=== PATIENT | male | born 1955 | race Caucasian/White ===

== ENCOUNTER → 2023-07-18 07:10 | Outpatient (REF) | payer MEDICARE, OTHER, SELFPAY | LOC: HWRAD 07:10 | PROVIDERS: ATTENDING PHYSICIAN Internal Medicine | DX: Z87.891 Personal history of nicotine dependence (principal) | CPT/HCPCS: 71271 ==

== ENCOUNTER → 2024-01-17 14:56 | Outpatient (REF) | payer MEDICARE, OTHER, SELFPAY | LOC: HWRAD 14:56 | PROVIDERS: ATTENDING PHYSICIAN Internal Medicine Critical Care Medicine; FAMILY PHYSICIAN Internal Medicine | DX: R91.1 Solitary pulmonary nodule (principal) | CPT/HCPCS: 71250 ==

== ENCOUNTER → 2024-07-13 09:37 | Outpatient (REF) | payer MEDICARE, OTHER, SELFPAY | LOC: HWRAD 09:37 | PROVIDERS: ATTENDING PHYSICIAN Internal Medicine Critical Care Medicine; FAMILY PHYSICIAN Internal Medicine | DX: R91.1 Solitary pulmonary nodule (principal) | CPT/HCPCS: 71250 ==

== ENCOUNTER → 2024-10-23 10:32 | Outpatient (REF) | payer MEDICARE, OTHER, SELFPAY | LOC: HWRAD 10:32 | PROVIDERS: ATTENDING PHYSICIAN Internal Medicine Critical Care Medicine; FAMILY PHYSICIAN Internal Medicine | DX: R91.1 Solitary pulmonary nodule (principal) | CPT/HCPCS: 71250 ==

== ENCOUNTER → 2024-11-12 16:19 | Outpatient (REF) | payer MEDICARE, OTHER, SELFPAY | LOC: MRI 3T 16:19 | PROVIDERS: ATTENDING PHYSICIAN Specialist; FAMILY PHYSICIAN Internal Medicine | DX: R97.20 Elevated prostate specific antigen [PSA] (principal) | CPT/HCPCS: 72197; A9575 ==

== ENCOUNTER → 2024-11-27 13:12 | Outpatient (REF) | payer MEDICARE, OTHER, SELFPAY | LOC: CLAB 13:12 | PROVIDERS: ATTENDING PHYSICIAN Specialist | DX: R97.20 Elevated prostate specific antigen [PSA] (principal) | CPT/HCPCS: 88305 ==

== ENCOUNTER 2024-12-04 11:47 | Inpatient (IN) | payer MEDICARE, OTHER, SELFPAY ==
[2024-12-04] VITALS (40 sets, daily range): BP systolic 83–134; BP diastolic 53–100; BMI 22.0
[2024-12-04 07:58] LABS: Hematocrit 32.6 % (39.0-52.0); Hemoglobin 10.8 g/dL (13.0-18.0); Mean Corp Hgb Conc. 33.1 g/dL (33.0-37.0); Mean Corpuscular Volume 97.6 fL (80.0-94.0); Nucleated Red Blood Cells % 0 % (-); Platelet Count 341 10^3/uL (130-400); Red Cell Dist. Width 22.1 % (11.5-14.5)
[2024-12-04 08:16] LABS: ALT (SGPT) 27 U/L (0-50); AST (SGOT) 25 U/L (17-59); Albumin 3.9 g/dl (3.5-5.0); Alkaline Phosphatase 50 U/L (38-126); Blood Urea Nitrogen 16 mg/dl (9-20); Calcium 8.9 mg/dl (8.4-10.2); Carbon Dioxide 26 mmol/L (22-30); Chloride 109 mmol/L (98-107); Glucose 127 mg/dl (70-99); Potassium 4.2 mmol/L (3.5-5.1); Sodium 139 mmol/L (135-145); Total Protein 6.1 g/dl (6.3-8.2); eGFR > 60.00
[2024-12-04 08:32] LABS: Anisocytosis 1+; Hypochromasia 1+; Normal RBC Morphology No; Polychromasia 1+
[2024-12-04 08:32] LABS: Glucose - Point of Care 159 mg/dl (70-99)
[2024-12-04 08:33] LABS: Ovalocytes 1+
[2024-12-04] MEDS: NSS 2000 IV (08:35)
[2024-12-04] MEDS: PROTONIX IV 80 MG IV (08:35)
[2024-12-04] MEDS: ZOFRAN 4 MG IV ×2 (08:35→09:03)
--- NOTE | 2024-12-04 08:40 | EDRN ---
Addendum entered by Juhi Duffy RN 12/04/24 10:50:
1000 pt given IV Phenergan for ongoing nausea.
IV D5 LR started at 125/hr
1035 hospitalist in rm to eval pt
1045 GI in rm to eval pt
1st unit of bld started as ordered.
Addendum entered by Juhi Duffy RN 12/04/24 09:41:
0845 pt given tranexamic IV as ordered.
pt continues to c/o nausea 2nd dose zofran 4mg given
[address] scan of abd.
no further rectal blding noted
Original Note:
0820 pt got out of bed to use the bathroom. pts yelled out she needs help. pt passed out and was taken to the floor by two nurses. noted large amount of rectal blding with clots.
pt was lifted back to the stretcher. Dr Hill at bedside.
two more IV inserted 18 g right AC and 20g left wrist.
IV fluids wide open started.
type and cross sent.
bld consent signed.
pt c/o n/v at this time.
pt given IV zofran
pt given IV protonix
[2024-12-04] MEDS: TRANEXAMIC ACID 100 IV (08:48)
--- NOTE | 2024-12-04 08:52 | ED.GENMED ---
History of Present Illness
General
Chief Complaint: Rectal Bleeding
Time Seen by Provider: 12/04/24 08:01
Nursing documentation reviewed up to this point in time: agreed with
History of Present Illness
History of Present Illness:
69-year-old male presents to the ER for evaluation of rectal bleeding which started this morning. Patient had a transrectal prostate biopsy last week. He reports minimal bleeding after the procedure which had resolved. He has been feeling well
and denies any recent straining or constipation. He reports that he is feeling very weak and nauseated. On arrival to the ER he had a large bloody bowel movement. He felt nauseated and went to go vomit in the sink, passed another large amount of
blood and clots, at least 250 mL and felt near syncopal. He denies chest pain or shortness of breath. No syncope at home. He takes baby aspirin daily, no other blood thinners. He is not on any other prescription medications
Past History
Past History
ED Past Medical History: None
ED Past Surgical History: None
Review of Systems
Review of Systems
Allergies reviewed?: Yes
Phy Exam
Physical Exam
Physical Exam:
Patient preferring to keep eyes closed during exam, appears pale, head is normocephalic atraumatic, mucous membranes tacky, heart regular rate and rhythm no murmurs or ectopy, lungs are clear to auscultation without wheezes rales or rhonchi, abdomen
is soft and nontender without guarding rebound or rigidity, thready DP pulses present bilateral feet, 2+ radial pulses present bilateral upper extremities with delayed cap refill, GCS is 15, no rash
Course
Orders/Labs/Results
Orders:
Orders
12/04/24 07:43
Complete Blood Count/With Diff Urgent
Comprehensive Metabolic Panel Urgent
12/04/24 08:21
Ondansetron Injectable [Zofran] 4 mg .ROUTE .STK-MED ONE
12/04/24 08:24
Cardiac Monitoring- Treatment ONCE
Pantoprazole [Protonix IV] 80 mg IV NOW STA
Pulse Ox/cont/shift [RESP] Stat
Quantity: 1
12/04/24 08:25
Electrocardiogram (*1) Stat
Reason for Study: Other
Other Reason for Exam: GI Bleed
CT Abd/pelvis Angio W/wo Iv Urgent
Comment:
Reason For Exam: gi bleeding
EKG- Treatment ONCE
IV Insert/Care/Rem.- Treatment PRN
12/04/24 08:26
0.9% Sodium Chloride 1000 ml [Nss] 2,000 ml IV BOLUS
Ondansetron Injectable [Zofran] 4 mg IV NOW STA
12/04/24 08:34
Type+Screen Urgent
12/04/24 08:40
Tranexamic Acid 1000 mg/100 ml [Tranexamic Acid] 1,000 mg in 100 ml IV ONCE
12/04/24 08:45
Ondansetron Injectable [Zofran] 4 mg IV NOW STA
12/04/24 08:50
* Blood Bank Products Urgent
Blood Bank Products: *Packed RBC Leuko(PRBC's)
Quantity: 1
Transfuse Today: Yes
Reason: Bleeding
12/04/24 09:00
Complete Blood Count/No Diff Urgent
PTT Urgent
Prothrombin Time Urgent
12/04/24 09:12
Dextrose 5%/Lactringers 1000ML [D5lr] 1,000 ml Promethazine [Phenergan] 25 mg IV 125 mls/hr
Abnormal Lab Results
12/04/24 12/04/24 12/04/24
07:43 08:21 08:34
RBC 3.34 L 10^6/uL
(4.70-6.10)
Hgb 10.8 L g/dL
(13.0-18.0)
Hct 32.6 L %
(39.0-52.0)
MCV 97.6 H fL
(80.0-94.0)
MCH 32.3 H pg
(27.0-31.0)
RDW 22.1 H %
(11.5-14.5)
Abs Immat Gran (auto) 0.1 H 10^3/uL
(0-0.05)
Absolute Monos (auto) 0.9 H 10^3/uL
(0.1-0.6)
Immature Gran % 1.2 H %
(0-0.5)
Monocytes % 10.2 H %
(1.7-9.3)
PT
Chloride 109 H mmol/L
(98-107)
Creatinine 0.6 L mg/dL
(0.7-1.3)
Glucose 127 H mg/dl
(70-99)
Total Protein 6.1 L g/dl
(6.3-8.2)
POC Glucose 159 H mg/dl
(70-99)
Crossmatch IS Only See Detail
12/04/24
09:00
RBC 2.45 L 10^6/uL
(4.70-6.10)
Hgb 8.1 L D g/dL
(13.0-18.0)
Hct 24.0 L %
(39.0-52.0)
MCV 98.0 H fL
(80.0-94.0)
MCH 33.1 H pg
(27.0-31.0)
RDW 22.3 H %
(11.5-14.5)
Abs Immat Gran (auto)
Absolute Monos (auto)
Immature Gran %
Monocytes %
PT 17.3 H Sec
(11.4-14.6)
Chloride
Creatinine
Glucose
Total Protein
POC Glucose
Crossmatch IS Only
12/04/24 09:00
12/04/24 07:43
Hemoglobin stable compared to prior value of 11 from 03/18/2019
Vital Signs
Initial and Last Documented VS:
Initial Vital Signs
Temp Pulse Resp BP Pulse Ox
97.8 F 104 18 134/100 98
12/04/24 07:09 12/04/24 07:09 12/04/24 07:09 12/04/24 07:09 12/04/24 07:09
Last Documented Vital Signs
Temp Pulse Resp BP Pulse Ox
97.8 F 87 13 115/69 98
12/04/24 07:09 12/04/24 07:41 12/04/24 07:41 12/04/24 07:41 12/04/24 08:56
MDM/Problems Addressed
Differential Diagnosis Includes:
Differential diagnosis considered but not limited to bleeding from procedural site, AVM, diverticular bleed along with other etiologies considered
*Radiology
Radiology exam reviewed: preliminary read by ED provider (I independently viewed and interpreted CT angio showing no evidence for acute extravasation, gastroenterology updated. Radiology reading was available shortly after my initial view) and
radiology read reviewed (IMPRESSION: 1. No contrast extravasation appreciated to suggest active gastrointestinal hemorrhage at the time of imaging. 2. Moderate colonic diverticulosis, most pronounced within the sigmoid colon, without evidence of
diverticulitis. 3. Mild prostatic enlargement. 4. Emphysema at the visualized)
*Pulse Oximetry
SaO2: 98
Oxygen Mode of Delivery: Room air
Patient hypoxic: no
*EKG
Interpreted by ED Provider?: Yes (I dependently viewed and interpreted twelve-lead EKG showing normal sinus rhythm, rate 62, normal axis, normal intervals, no ST elevation improved rate compared to prior from 10/05/2016)
*[employer] Claim Examiner Interpretation
Rate: normal (I independently reviewed and interpreted rhythm strip showing normal sinus rhythm, no ectopy)
*Critical Care Note
Total Time (30-74mins, 75-104mins- exclusive of procedures): see below
comment:
Critical care statement: A total of 60 minutes of critical care time was provided for this patient. This includes management of unstable vital signs, evaluation of the patient at bedside, reviewing the patient's pertinent medical records, discussion
with consultants, review of old EKGs and review of pertinent medical records. This time with separate from time utilized to perform the aforementioned documented procedures
Update Note
Update Note:
Patient's blood sugar checked after near syncopal episode, within normal limits. 2 L IV fluid bolus ordered along with Zofran, Protonix, type and screen and repeated CBC. I discussed with patient and present at bedside need for emergent
evaluation to assess area of bleeding. Given ongoing passage of blood and clots per rectum, will give dose of TXA. Awaiting CT angio for further delineation of care plan. I notified on-call gastroenterology of patient's situation. Blood consent
form signed. 1 unit packed red cells ordered. Awaiting remaining results.
0925-rectal exam had been deferred at time of initial presentation given hypotension and severity of appearance. Once blood pressure improved, patient is no longer having gross rectal bleeding. I do not see any evidence of anal fissure or bleeding
external hemorrhoid, though there is scant bright red blood present on the clots below the patient. Awaiting remaining results and GI consultation
0957: CT does not show any acute bleeding. I reviewed full patient presentation and updated information with gastroenterology and hospitalist. Hospitalist accepts patient for admission for further care
ED Attending Note
-
Portions of this chart may have been created with voice recognition software.� Occasional wrong word or��sound alike� substitutions may have occurred due to the inherent limitations of voice recognition software.
Discharge Plan
Departure
Patient Disposition: Admit
Date of Disposition: 12/04/24
Time of Disposition: 09:55
Presentation/result/management discussed w/ accepting MD/DO: Hospitalist
Discharge Problem:
Bright red rectal bleeding, Near syncope, ABLA (acute blood loss anemia)
Prescriptions:
No Action
aspirin 81 MG tablet,delayed release (DR/EC)
81 mg PO DAILY
ibuprofen 200 MG tablet
400 mg PO Q6HPRN PRN (Reason: mild pain)
fish oil-dha-epa 1 EACH capsule
1 ea PO DAILY
multivitamin with folic acid [Tab-A-Tito] 1 TABLET tablet
1 tab PO DAILY
cephalexin 500 mg capsule
500 mg PO Q8H 5 Days Qty: 15 0RF
Referrals:
Blair Bradshaw DO [Family Provider, Internal Medicine]
Interventions
Interventions:
*Risk Screen - Suicide Last Done: 12/04/24 07:09
*Neglect/Abuse Screening Last Done: 12/04/24 07:09
*ED COVID-19 Vaccine History Last Done: 12/04/24 07:09
EH-Opveva-Kozkmifypk Assessment Last Done: 12/04/24 07:45
ED- Cardiac Assessment Last Done: 12/04/24 07:45
ED- Pulmonary Assessment Last Done: 12/04/24 07:45
Discharge Date and Time
Print Language: JAPANESE
[2024-12-04 09:14] LABS: Hematocrit 24.0 % (39.0-52.0); Hemoglobin 8.1 g/dL (13.0-18.0); Mean Corp Hgb Conc. 33.8 g/dL (33.0-37.0); Mean Corpuscular Volume 98.0 fL (80.0-94.0); Platelet Count 311 10^3/uL (130-400); Red Cell Dist. Width 22.3 % (11.5-14.5)
[2024-12-04 09:19] LABS: INR 1.39; PT 17.3 Sec (11.4-14.6)
[2024-12-04 09:20] LABS: APTT 29.5 Sec (23.4-35.0)
[2024-12-04] MEDS: D5LR 1000 IV (10:20)
--- NOTE | 2024-12-04 10:20 | CON.GI ---
Addendum entered and electronically signed by Umer Cooney MD 12/04/24 12:47:
Patient seen and examined, agree with resident note. The patient is a 69-year-old male with past medical history as noted who presents with rectal bleeding. He started having painless rectal bleeding this morning, described as red blood with
clots. In the emergency room he had another episode with near syncope, red blood and clots. He was transiently relatively hypotensive, received IV fluids and PRBCs, now feeling better. He has no lightheadedness or dizziness at rest. He denies
any significant abdominal pain. He has been in his usual of health except for transrectal prostate biopsy last week which was uneventful. He had some transient hematuria though had no rectal bleeding immediately after his biopsy. His last
colonoscopy was within the past couple of years with Dr. Gonzalez at [facility] which was normal by report. His last colonoscopy here did show diverticulosis in the sigmoid and descending, which was also seen on his PET/CT recently. On exam he has
minimal left lower quadrant discomfort though otherwise is unremarkable. CT angiogram was negative for active extravasation.
1. GI bleed: Likely lower, doubt brisk upper GI bleed, most likely diverticular. He did have significant bleeding with near syncope, though now hemodynamics have improved, no further recurrent bleeding and CT angiogram is negative. Other
etiologies including malignancy, angiectasia etc. seem much less likely. It is hard to associate his recent transrectal biopsy given no immediate postprocedural bleeding and it has been more than a week, though this is still a consideration. At
this point, his hemodynamics have improved, no further gross bleeding and overall feeling well. Will continue supportive care, clear liquids for now, IV fluids and close monitoring of his hemoglobin. If he has further significant bleeding may
consider flex sig to evaluate his prostate biopsy site, though we will hold on this for now.
Original Note:
Consultation
-
Date/Time Consultation Requested: 12/04/24
Date/Time Consultation Performed: 12/04/24
Requesting Provider: Faisal Diamond
Performing Provider: Umer Cooney
Medical History
Chief Complaint / HPI
Chief Complaint: Bloody Diarrhea
History of Present Illness:
Roland is a 69-year-old male with a history of extensive diverticular disease and internal hemorrhoids who presents to the ER for evaluation of painless rectal bleeding which started this morning.
Of note, patient had a transrectal prostate biopsy last week with Dr. Lima in the outpatient setting, which was reportedly uneventful and tolerated well. There was minimal bloody urine following the procedure but that resolved completely
within a few days. He had been having normal bowel movements up until the night prior to presentation, which was harder than usual, but painless to pass and without blood. He does not normally have constipation. According to patient and , Roland
woke up this morning and felt wet, then they looked and saw that the sheets were covered with blood. He reported feeling weak and nauseated at that time. They came immediately to the ED where he had a large bloody bowel movement. He felt as if he
might vomit and got up to the sink to throw up where he passed another large amount of blood/clots of approx 250cc, had an episode of syncope and was caught by . He did not hit his head. He reports holding his daily aspirin for a few days before
this biopsy and then resuming it a few days after. He last took aspirin yesterday. He has not taken any meds today. He does not normally use NSAIDs.
Presently, is awake and talking, complaining of nausea and feeling cold. No abdominal pain, chest pain, shortness of breath.
CBC on admission 7:43 AM 10.8, CBC 9:00AM showed hgb 8.1. He has no leukocytosis, fever, or tachycardia. BP is soft 80s/50s.
T&S obtained, blood consent obtained, 1U PRBC hanging and given 2L bolus IVF. He was given Zofran, IV Protonix 80mg, and TXA.
CTA obtained prior to TXA showing no active extravasation.
No evidence of anal fissure or bleeding external hemorrhoid on anal exam, though there is scant bright red blood present on the clots below the patient.
GI was consulted for lower GI bleeding
Past Medical History
Past Medical History: None, COPD and Other (Diverticular Disease)
Social History
Tobacco: Non-Smoker
Alcohol: None
Drug: None
Personal:
Living: With Family
Family History
Family History: Reviewed & Not Pertinent
Allergies / Home Medications
Allergy/AdvReac Type Severity Reaction Status Date / Time
Sulfa (Sulfonamide Allergy Severe Anaphylaxis Verified 12/04/24 07:13
Antibiotics)
�Medication �Instructions �Recorded
aspirin 81 mg tablet,delayed 81 mg PO DAILY 03/17/19
release
fish oil-dha-epa 1,200 mg-144 1 ea PO DAILY 03/17/19
mg-216 mg capsule
ibuprofen 200 mg tablet 400 mg PO Q6HPRN PRN mild pain 03/17/19
multivitamin with folic acid 400 1 tab PO DAILY 03/17/19
mcg tablet (Tab-A-Tiot)
cephalexin 500 mg capsule 500 mg PO Q8H 5 days #15 caps 08/04/22
Review of Systems
-
History Source: Patient
All other systems: A 12 pt ROS was Negative except as stated above in HPI
Vital Signs
Temp Pulse Resp BP Pulse Ox
97.8 F 87 13 115/69 98
12/04/24 07:09 12/04/24 07:41 12/04/24 07:41 12/04/24 07:41 12/04/24 08:56
Physical Exam
Exam
General: Well Developed, Well Nourished and Chills
HEENT: Normocephalic, Anicteric, Moist Mucous Membranes and Atraumatic
Respiratory: Clear and Non Labored Respirations; Negative Wheezes, Rales or Rhonchi
Cardiac: S1/S2 and Regular Rhythm; Negative Murmur or Rub
Breast: N/A
GI: Soft, Non Distended, Normal Bowel Sounds and Tender (Mild LUQ Tenderness, no epigastric tenderness)
Rectal: Other (No evidence of anal fissure or bleeding external hemorrhoid on anal exam, though there is scant bright red blood present on the clots below the patient)
Genito-urinary: Clear Urine
Musculoskeletal: No Clubbing, No Cyanosis and No Edema
Skin: Warm and Dry
Neuro: AO x 3
Results
WBC 10.2 10^3/uL (4.8-10.8) 12/04/24 09:00
Hgb 8.1 g/dL (13.0-18.0) L D 12/04/24 09:00
Hct 24.0 % (39.0-52.0) L 12/04/24 09:00
MCV 98.0 fL (80.0-94.0) H 12/04/24 09:00
Plt Count 311 10^3/uL (130-400) 12/04/24 09:00
Absolute Neuts (auto) 5.4 10^3/uL (1.4-6.5) 12/04/24 07:43
PT 17.3 Sec (11.4-14.6) H 12/04/24 09:00
INR 1.39 12/04/24 09:00
APTT 29.5 Sec (23.4-35.0) 12/04/24 09:00
Sodium 139 mmol/L (135-145) 12/04/24 07:43
Potassium 4.2 mmol/L (3.5-5.1) 12/04/24 07:43
Chloride 109 mmol/L (98-107) H 12/04/24 07:43
Carbon Dioxide 26 mmol/L (22-30) 12/04/24 07:43
BUN 16 mg/dl (9-20) 12/04/24 07:43
Creatinine 0.6 mg/dL (0.7-1.3) L 12/04/24 07:43
Calcium 8.9 mg/dl (8.4-10.2) 12/04/24 07:43
Total Bilirubin 1.1 mg/dl (0.2-1.3) 12/04/24 07:43
AST 25 U/L (17-59) 12/04/24 07:43
ALT 27 U/L (0-50) 12/04/24 07:43
Alkaline Phosphatase 50 U/L (38-126) 12/04/24 07:43
Diagnostic Image Results:
Prior GI Procedures:
EGD:
Colonoscopy:
Colonoscopy 07/16/2012:
Impression: - Rectal exam revealed enlarged prostate.
- Internal hemorrhoids.
- Diverticulosis from sigmoid to descending colon.
- One 6 mm polyp in the transverse colon. Resected and
retrieved.
- One 3 mm polyp in the descending colon. Resected and
retrieved.
- One 3 mm polyp in the sigmoid colon. Resected and
retrieved.
Recommendation: - Await pathology results.
- High fiber diet.
- Repeat colonoscopy in 5 years for screening purposes.
Assessment / Plan
-
Roland is a 69-year-old male with a history of extensive diverticular disease on imaging/prior colonoscopy and internal hemorrhoids who presents to the ER for evaluation of painless rectal bleeding which started this morning.
GI was consulted for acute lower GI Bleed
--IMAGING--
PT Pet Wbi W/CT Skull-thigh (12/02/24):
There is severe diverticulosis throughout the sigmoid colon. There is moderate diverticulosis throughout the descending colon.
CT Abd/pelvis Angio W/wo Iv (12/04/24):
1. No contrast extravasation appreciated to suggest active gastrointestinal hemorrhage at the time of imaging.
2. Moderate colonic diverticulosis, most pronounced within the sigmoid colon, without evidence of diverticulitis.
3. Mild prostatic enlargement.
4. Emphysema at the visualized lung bases.
#Acute Lower GI Bleeding
#Acute Blood Loss Anemia
Differentials include most likely diverticular bleed, less likely traumatic bleeding secondary to transrectal prostate biopsy vs. hemorrhoidal bleed. Bleed was likely worsened by resuming aspirin within a few days post-procedure. Currently, pt will
be admitted to ICU level of care and is being transfused 1U PRBCs for symptomatic anemia >8. He is s/p 2L IVF with improving BPs. CTA imaging taken prior to TXA administration shows no active extravasation. Source of bleeding seems to have resolved.
He has not had any new episodes of BRBPR since syncopal event. He is not currently experiencing any cardiovascular symptoms and is hemodynamically stable.
For now, will hold off on scoping him. If bleeding returns then he may benefit from probable Flex sig with rapid prep to visualize the area of prior biopsy, but the history at this time is most consistent with resolved diverticular bleed. Would
repeat CBC later today and continue to monitor post infusion, transfusing if needed.
Will continue to follow.
-
-
Thank you for consultation and allowing me to participate in the patient's care. Please call the alteration workroom supervisor GI physician during the after hours with any questions or concerns.
[2024-12-04] MEDS: PHENERGAN 51 MG IV (10:26)
[2024-12-04] MEDS: NSS 1000 IV (11:03)
--- NOTE | 2024-12-04 12:17 | CM ---
Met with patient and son at the bedside in the ED
Pharmacy verified: [facility]
Lives w/ ; multilevel home; no step to enter via back door; 12-13 steps between floors; railings present; half bath 1st floor
PLOF: reported he was independent with ambulation, stairs, and ADLs; drives; works part-time
NO SNF or Home Health utilization history
will transport home
Plan: anticipate discharge to home when stable; Case Management will monitor for needs/services
[2024-12-04 15:08] LABS: Hematocrit 26.3 % (39.0-52.0); Hemoglobin 9.0 g/dL (13.0-18.0)
--- NOTE | 2024-12-04 16:12 | HPS.HSE ---
Family Physician
-
Family Physician: Blair Bradshaw
Chief Complaint
-
rectal bleeding
History of Present Illness
69-year-old male with history of diverticulosis, internal hemorrhoids who recently had a transrectal prostate biopsy [address] Lima without evidence of bright red blood per rectum. Early this morning he noted to have painless rectal
bleeding which started this morning and woke up in a pool of blood. Presented to the hospital when he stood up he nearly syncopized his was able to catch him however there was blood all over the floor. CBC 10.8 however repeat CBC
approximately 90 minutes later a 0.1 with no leukocytosis and blood pressure is 80/50. ER obtained blood consent ordered 1 unit PRBC along with 2 L of IV fluid and was given TXA. CT obtained prior to TXA showing no extravasation.
States last C-scope was couple years ago, recommended repeat in 10 years. Has noted 10 pound weight loss over 1 month without night sweats, poor p.o. intake/early satiety
Medical History
Past Medical History
Past Medical History: Reports None
Past Surgical History: Reports None
Social History
Tobacco: Former Smoker
Alcohol: None
Family History
Family History: Not pertinent
Allergies / Home Medications
Allergies reflects when Allergies were last updated in [employer].
Home Medications with original date entered in [employer]
Allergy/Medication List:
Allergies
Allergy/AdvReac Type Severity Reaction Status Date / Time
Sulfa (Sulfonamide Allergy Severe Anaphylaxis Verified 12/04/24 07:13
Antibiotics)
Home Medications
aspirin 81 mg tablet,delayed release 81 mg PO DAILY 03/17/19
fish oil-dha-epa 1,200 mg-144 mg-216 mg capsule 1 ea PO DAILY 03/17/19
ibuprofen 200 mg tablet 400 mg PO Q6HPRN PRN mild pain 03/17/19
multivitamin with folic acid 400 mcg tablet (Tab-A-Tito) 1 tab PO DAILY 03/17/19
cephalexin 500 mg capsule 500 mg PO Q8H 5 days #15 caps 08/04/22
Review of Systems
-
A 12 point ROS was completed and negative except as noted: Yes
Physical Exam
Vital Signs
Vital Signs
Temp Pulse Resp BP Pulse Ox
97.6 F 70 19 117/61 96
12/04/24 12:35 12/04/24 16:00 12/04/24 16:00 12/04/24 15:15 12/04/24 16:00
Physical Exam
General: Well Developed, Well Nourished and Other (Pale conjunctiva)
HEENT: NormoCephalic and Anicteric
Respiratory: Clear
Cardiac: S1/S2 and Murmur
GI: Soft, Non Distended and Tender (mild LLQ)
Rectal: Deferred by Provider
Skin: Warm and Dry
Neuro: Awake and AO x 3
Laboratory Results
-
12/04/24 07:43
Laboratory Results
PT 17.3 Sec (11.4-14.6) H 12/04/24 09:00
INR 1.39 12/04/24 09:00
APTT 29.5 Sec (23.4-35.0) 12/04/24 09:00
Total Bilirubin 1.1 mg/dl (0.2-1.3) 12/04/24 07:43
AST 25 U/L (17-59) 12/04/24 07:43
ALT 27 U/L (0-50) 12/04/24 07:43
Alkaline Phosphatase 50 U/L (38-126) 12/04/24 07:43
Impression/Plan
-
Bright red blood per rectum, symptomatic anemia, acute blood loss anemia suspect secondary to acute lower GI bleeding. Likely diverticular however cannot exclude internal hemorrhoids, AVM and less likely as already 1 week out from transrectal biopsy
-1 unit PRBC provided
-Repeat CBC posttransfusion
-CBC every 6 hours for the first 24 hours followed by twice daily or daily.
-No indication for PPI as lower GI bleed
- Consult gastroenterology
- May require flex sig/C-scope
Centrilobular emphysema noted on previous PET scan, severe bilateral
Will need outpatient pulmonary follow-up for PFTs
No evidence of acute wheezing on exam
Prostatic enlargement
S/p transrectal prostate biopsy 1 week ago with outpatient urology
- Biopsy results pending
--- NOTE | 2024-12-04 19:54 | PTCARENOTE ---
Care assumed of Pt by this RN from previous RN after change of shift report. pt is AA0x3. denies current nausea or abdominal pain. urinating yellow urine via urinal. abdomen is nontender and non distended, bowel sounds normoactive. HR 74 bpm, sat
97% on RA, RR 16, BP 117/68(83). call light in reach.
[2024-12-04] MEDS: TYLENOL 650 MG PO (20:12)
[2024-12-04 20:47] LABS: Hematocrit 25.7 % (39.0-52.0); Hemoglobin 8.9 g/dL (13.0-18.0)
[2024-12-05] VITALS (22 sets, daily range): BP systolic 91–139; BP diastolic 58–88; BMI 23.0
[2024-12-05 03:26] LABS: Hematocrit 25.3 % (39.0-52.0); Hemoglobin 8.6 g/dL (13.0-18.0); Mean Corp Hgb Conc. 34.0 g/dL (33.0-37.0); Mean Corpuscular Volume 95.1 fL (80.0-94.0); Platelet Count 273 10^3/uL (130-400); Red Cell Dist. Width 23.0 % (11.5-14.5)
[2024-12-05 03:50] LABS: Blood Urea Nitrogen 7 mg/dl (9-20); Calcium 8.1 mg/dl (8.4-10.2); Carbon Dioxide 25 mmol/L (22-30); Chloride 114 mmol/L (98-107); Estimated Creatinine Clearance 100 ml/min; Glucose 99 mg/dl (70-99); Potassium 3.9 mmol/L (3.5-5.1); Sodium 140 mmol/L (135-145); eGFR > 60.00
--- NOTE | 2024-12-05 07:40 | W.PN.GI.CBS2 ---
Today's Communication / Plan
-
Please see assessment and plan for details.
Assessment / Plan
-
1. GI bleed: Lower, likely diverticular, with negative CT angiogram. Hemoglobin remained stable overnight, no significant bleeding. While he did have a transrectal biopsy about a week ago, would expect more immediate bleeding and not to this
degree, likely not related. At this point we will advance to full liquid diet, continue observation. If remains without significant bleeding likely able to discharge tomorrow. He will follow-up with Dr. Gonzalez on discharge, the last colonoscopy
was within a couple of years, likely no need to repeat diagnostically in the future.
Subjective
Subjective
Date of Service: December 05, 2024
Patient feeling well, no events overnight, no bowel movements. Tolerated liquids without difficulty, no fever or chills.
Objective
Data Reviewed
Laboratory Data:
Laboratory Results
12/05/24 03:14
Laboratory Results
PT 17.3 Sec (11.4-14.6) H 12/04/24 09:00
INR 1.39 12/04/24 09:00
APTT 29.5 Sec (23.4-35.0) 12/04/24 09:00
Total Bilirubin 1.1 mg/dl (0.2-1.3) 12/04/24 07:43
AST 25 U/L (17-59) 12/04/24 07:43
ALT 27 U/L (0-50) 12/04/24 07:43
Alkaline Phosphatase 50 U/L (38-126) 12/04/24 07:43
Vital Signs and I&O:
Vital Signs
Temp Pulse Resp BP Pulse Ox
98.1 F 74 12 136/82 95
12/05/24 03:00 12/05/24 07:30 12/05/24 07:30 12/05/24 07:00 12/05/24 07:30
I&O
12/04/24 12/05/24 12/06/24
06:59 06:59 06:59
Intake Total 490 / 490
Output Total 1175 / 1175
Balance -685 / -685
Physical Exam
Physical Exam
General: NAD
Abdomen: normal bowel sounds, soft, no tenderness, no masses or bruits, no ascites
[2024-12-05] MEDS: TYLENOL 650 MG PO (08:00)
--- NOTE | 2024-12-05 10:14 | PTCARENOTE ---
Assumed care of patient this AM. No events reported over night. Patient denies any abdominal pain or discomfort. Patient voiding without difficulty in urinal. Patient has not has a BM since arriving to IMU. VS stable. SR on monitor. Q6H H&H.
[2024-12-05 10:21] LABS: Hematocrit 29.8 % (39.0-52.0); Hemoglobin 10.0 g/dL (13.0-18.0)
--- NOTE | 2024-12-05 13:32 | W.PN.HOSP.TC ---
Today's Communication/Plan
-
Assessment / Plan
Assessment / Plan
General: Well Developed, Well Nourished and Other (Pale conjunctiva)
HEENT: NormoCephalic and Anicteric
Respiratory: Clear
Cardiac: S1/S2 and Murmur
GI: Soft, Non Distended and Non tender
Rectal: Deferred by Provider
Skin: Warm and Dry
Neuro: Awake and AO x 3
Bright red blood per rectum, symptomatic anemia, acute blood loss anemia suspect secondary to acute lower GI bleeding. Likely diverticular however cannot exclude internal hemorrhoids, AVM and less likely as already 1 week out from transrectal biopsy
-1 unit PRBC provided
-Repeat CBC posttransfusion
-CBC every 6 hours for the first 24 hours followed by twice daily or daily.
-No indication for PPI as lower GI bleed
- Consult gastroenterology
- May require flex sig/C-scope
Centrilobular emphysema noted on previous PET scan, severe bilateral
Will need outpatient pulmonary follow-up for PFTs
No evidence of acute wheezing on exam
Prostatic enlargement
S/p transrectal prostate biopsy 1 week ago with outpatient urology
- Biopsy results pending
Anticipated Discharge: Within 24 hours
Subjective/Interval History
-
Date of Service: December 05, 2024
Seen and examined. No new complaints. No acute overnight events.
No further bleeding
Has not had a bowel movement
Objective Data
-
Labs:
Laboratory Results
12/05/24 12/05/24 12/05/24
03:14 03:14 03:14
WBC 8.4
Hgb Cancelled 8.6 L
Hct Cancelled 25.3 L
Plt Count 273
Sodium 140
Potassium 3.9
Chloride 114 H
Carbon Dioxide 25
BUN 7 L
Creatinine 0.6 L
Glucose 99
Calcium 8.1 L
12/05/24 12/05/24 12/05/24
10:04 15:14 21:14
WBC
Hgb 10.0 L Pending Pending
Hct 29.8 L Pending Pending
Plt Count
Sodium
Potassium
Chloride
Carbon Dioxide
BUN
Creatinine
Glucose
Calcium
Vital Signs:
Vital Signs
Temp Pulse Resp BP Pulse Ox
98 F 72 15 139/74 97
12/05/24 07:44 12/05/24 12:45 12/05/24 12:45 12/05/24 12:00 12/05/24 12:47
I&O
12/04/24 12/05/24 12/06/24
06:59 06:59 06:59
Intake Total 490 / 490
Output Total 1175 / 1175 780 / 780
Balance -685 / -685 -780 / -780
[2024-12-05 16:01] LABS: Hematocrit 27.3 % (39.0-52.0); Hemoglobin 9.3 g/dL (13.0-18.0)
[2024-12-05] MEDS: TIMOPTIC 0.25% OPHTHALMIC SOLUTION 1 DROP OPHTH (18:40)
[2024-12-05] MEDS: XALATAN OPHTHALMIC SOLUTION 1 DROP OPHTH (21:39)
[2024-12-05 21:58] LABS: Hematocrit 27.5 % (39.0-52.0); Hemoglobin 9.3 g/dL (13.0-18.0)
--- NOTE | 2024-12-05 22:00 | PTCARENOTE ---
Assumed care of pt from parmjit RN. Pt AAox3. denies nausea or abdominal pain. no more bloody bms noted. assessment as documented. VSS. call jaime coon.
[2024-12-06] VITALS (9 sets, daily range): BP systolic 94–121; BP diastolic 44–78; BMI 22.4
[2024-12-06] MEDS: TYLENOL 650 MG PO (04:24)
[2024-12-06 05:02] LABS: Blood Urea Nitrogen 8 mg/dl (9-20); Calcium 8.7 mg/dl (8.4-10.2); Carbon Dioxide 29 mmol/L (22-30); Chloride 109 mmol/L (98-107); Estimated Creatinine Clearance 88 ml/min; Glucose 98 mg/dl (70-99); Hematocrit 26.9 % (39.0-52.0); Hemoglobin 9.2 g/dL (13.0-18.0); Mean Corp Hgb Conc. 34.2 g/dL (33.0-37.0); Mean Corpuscular Volume 95.7 fL (80.0-94.0); Platelet Count 284 10^3/uL (130-400); Potassium 4.2 mmol/L (3.5-5.1); Red Cell Dist. Width 22.4 % (11.5-14.5); Sodium 140 mmol/L (135-145); eGFR > 60.00
[2024-12-06] MEDS: NON-FORMULARY ITEM 1 INH INH (07:34)
--- NOTE | 2024-12-06 08:00 | W.PN.GI.CBS2 ---
Today's Communication / Plan
-
Please see assessment and plan for details.
Assessment / Plan
-
1. GI bleed: Lower, likely diverticular, with negative CT angiogram. Hemoglobin remained stable overnight, no significant bleeding. While he did have a transrectal biopsy about a week ago, would expect more immediate bleeding and not to this
degree, likely not related. He is okay to DC from GI standpoint. He will follow-up with his primary configuration specialist Dr. Gonzalez. By report his last colonoscopy was a couple years ago, likely will not need to repeat diagnostically now.
Will sign off for now, please contact with any further questions.
Subjective
Subjective
Date of Service: December 06, 2024
Patient feeling well, had a bowel movement this morning with small amount of old blood, no lightheadedness, dizziness, abdominal pain, fever or chills.
Objective
Data Reviewed
Laboratory Data:
Laboratory Results
12/06/24 04:19
12/06/24 04:19
Laboratory Results
PT 17.3 Sec (11.4-14.6) H 12/04/24 09:00
INR 1.39 12/04/24 09:00
APTT 29.5 Sec (23.4-35.0) 12/04/24 09:00
Total Bilirubin 1.1 mg/dl (0.2-1.3) 12/04/24 07:43
AST 25 U/L (17-59) 12/04/24 07:43
ALT 27 U/L (0-50) 12/04/24 07:43
Alkaline Phosphatase 50 U/L (38-126) 12/04/24 07:43
Vital Signs and I&O:
Vital Signs
Temp Pulse Resp BP Pulse Ox
98.1 F 70 13 119/71 95
12/05/24 23:00 12/06/24 07:30 12/06/24 07:30 12/06/24 07:00 12/06/24 07:30
I&O
12/05/24 12/06/24 12/07/24
06:59 06:59 06:59
Intake Total 490 / 490 1400 / 1400
Output Total 1175 / 1175 2365 / 2365
Balance -685 / -685 -965 / -965
Physical Exam
Physical Exam
General: NAD
Abdomen: normal bowel sounds, soft, no tenderness, no masses or bruits, no ascites
[2024-12-06] MEDS: ASPIR LOW (ENTERIC COATED) 81 MG PO (08:16)
[2024-12-06] MEDS: TIMOPTIC 0.25% OPHTHALMIC SOLUTION 1 DROP OPHTH (08:16)
[2024-12-06] MEDS: THERAGRAN 1 TABLET PO (08:16)
[2024-12-06] MEDS: FLOMAX 0.4 MG PO (08:16)
[2024-12-06] MEDS: CRESTOR 5 MG PO (08:16)
--- NOTE | 2024-12-06 09:27 | CM ---
MD entered order for discharge
Spoke with patient he said he is in agreement with discharge.
Offered VN he declined.
His Precede will drive him home.
PLAN Home no needs
--- NOTE | 2024-12-06 16:16 | W.DCSUMMARY ---
Discharge Summary
Discharge Data
Date of Admission: 12/04/24
Date of Discharge: 12/06/24
-
Pending Results: No
Hospital Course
69-year-old male with history of diverticulosis, internal hemorrhoids
Presented with bright red blood per rectum. Found to have a drop in hemoglobin by 2 point and borderline low blood pressure. Was provided 1 unit PRBCs bleeding discontinued. Hemoglobin stabilized evaluated by gastroenterology believe that this is
likely secondary to a diverticular bleed and should resolve on its own for which it did. Will need continued outpatient follow-up with gastroenterology.
CTAP
IMPRESSION:
1. No contrast extravasation appreciated to suggest active gastrointestinal hemorrhage at the time of imaging.
2. Moderate colonic diverticulosis, most pronounced within the sigmoid colon, without evidence of diverticulitis.
3. Mild prostatic enlargement.
4. Emphysema at the visualized lung bases.
Seen and examined on the day of discharge which was 12/06. No further bleeding. No abdominal pain
General: Well Developed, Well Nourished, no further paleness, sitting by the window eating breakfast
HEENT: NormoCephalic and Anicteric
Respiratory: Clear
Cardiac: S1/S2 and Murmur
GI: Soft, Non Distended and Non tender
Rectal: Deferred by Provider
Skin: Warm and Dry
Neuro: Awake and AO x 3
More than 30 minutes spent in discharge including
Final examination of the patient
Summarizing hospital stay
Instructions for continuing care to all relevant caregivers
Preparation of discharge records, prescriptions, and referral forms
Total time spent (in minutes): 33mins
Discharge Plan
-
Patient Disposition: Home (Routine Discharge)
Discharge Diagnosis/Procedures: Acute blood loss anemia
Symptomatic anemia
Bright red blood per rectum
Condition: Good
Diet: As tolerated
Activity: As tolerated
Activity Restrictions/Additional Instructions:
Presented with bright red blood per rectum. Found to have a drop in hemoglobin by 2 point and borderline low blood pressure. Was provided 1 unit PRBCs bleeding discontinued. Hemoglobin stabilized evaluated by gastroenterology believe that this is
likely secondary to a diverticular bleed and should resolve on its own for which it did. Will need continued outpatient follow-up with gastroenterology.
CTAP
IMPRESSION:
1. No contrast extravasation appreciated to suggest active gastrointestinal hemorrhage at the time of imaging.
2. Moderate colonic diverticulosis, most pronounced within the sigmoid colon, without evidence of diverticulitis.
3. Mild prostatic enlargement.
4. Emphysema at the visualized lung bases.
Referrals:
Mohsen Gonzalez MD [Non-Admitting Privileges, Gastroenterology] - in one week
Blair Bradshaw DO [Family Provider, Internal Medicine]
Prescriptions:
Continued
multivitamin with folic acid [Tab-A-Tito] 1 TABLET tablet
1 tab PO DAILY
bimatoprost 0.01 % Drops
1 drp OPHTHALMIC (EYE) QPM
timolol maleate 0.25 % Drops
1 drp OPHTHALMIC (EYE) 0800,1700
tamsulosin [Flomax] 0.4 mg Capsule
0.4 mg PO DAILY
Trelegy Ellipta 200-62.5-25 mcg Blister With Device
1 inh INHALATION DAILY
rosuvastatin 5 mg Tablet
5 mg PO DAILY
tadalafil 10 mg Tablet
10 mg PO DAILY
Held
aspirin 81 MG tablet,delayed release (DR/EC)
81 mg PO DAILY
Hold Instructions: Resume on 01/06/25.
Discharge Orders:
Discharge Patient (As Directed); Ordered 12/06/24
Ordered By: Mukund Bhagat
Discharge Date and Time
Discharge Date/Time: 12/06/24 12:40
Print Language: BENGALI
== END 2024-12-06 12:40 | disposition home or self-care (01) | DRG 378 ==
LOC: IMU 11:47
PROVIDERS: Emergency Medicine; ADMITTING PHYSICIAN Hospitalist; CONSULT PHYSICIAN Internal Medicine Gastroenterology; EMERGENCY PHYSICIAN Emergency Medicine; FAMILY PHYSICIAN Internal Medicine
DX: K57.31 Diverticulosis of large intestine without perforation or abscess with bleeding (principal); D62 Acute posthemorrhagic anemia; K64.8 Other hemorrhoids; N40.0 Benign prostatic hyperplasia without lower urinary tract symptoms; Z87.891 Personal history of nicotine dependence; Z88.2 Allergy status to sulfonamides; Z79.82 Long term (current) use of aspirin; J43.2 Centrilobular emphysema; K63.5 Polyp of colon
CPT/HCPCS: 36430; 74174; 80048; 80053; 82962; 85014; 85018; 85025; 85027; 85610; 85730; 86850; 86900; 86901; 86920; 93005; 96361; 96365; 96366; 96375; 99291; P9016; Q9967